=== PATIENT | male | born 1975 | race Caucasian/White ===

== ENCOUNTER 2016-08-21 16:18 | Emergency (ER) | payer SELFPAY ==
[~2016-08-21] VITALS: Ht 170.2 cm; Wt 114.5 kg
[2016-08-21 16:28] VITALS: Ht 170.2 cm; Wt 114.5 kg
[2016-08-21] MEDS ORDERED: ASPIRIN 81 MG CHEWABLE TABLET PO ONE (16:30)
[2016-08-21] MEDS ORDERED: NITROGLYCERIN 0.4 MG SUBLINGUAL TABLET SL PRN (16:30)
--- NOTE | 2016-08-21 16:41 | ERPDOC ---
Departure Disposition Decision Date: August 21, 2016 Disposition Decision Time: 20:21 (TORSTEN WEBER MD) Disposition: 01 DISCHARGED HOME, SELF-CARE Impression Impression (TIMO BETANCOURT DO) Impression: Primary Impression: Chest pain Chest pain type: unspecified Qualified Codes: R07.9 - Chest pain, unspecified Additional Impression: Reflux esophagitis Severity: Moderate (TORSTEN WEBER MD) Condition: Improved Seen By: Physician only (TORSTEN WEBER MD) Referrals: MINO HERNANDEZ APRN (Family) Patient Instructions: Chest Pain (ED) Problems/Meds/Labs Reviewed?: Yes Medications reviewed and manag: Yes (TORSTEN WEBER MD) Additional Instructions: Please call cardiology tomorrow. Dr. Kumar is communication engineer. His office number is [phone]. If you have any repeat chest pain tonight, return to the ED. Follow up care ordered?: Yes Mental Status: Alert, Oriented (TORSTEN WEBER MD) Scripts Ranitidine HCl (Ranitidine HCl) 150 Mg Tablet 150 MG PO BID for 30 Days, #60 TAB Take 1 tablet, by mouth, 2 times a day. Prov: TORSTEN WEBER MD 08/21/16 HPI - Chest Pain General Chief Complaint: Chest Pain Stated Complaint: CHEST PAIN, DIFF BREATHING Time Seen by Provider: 16:19 Source: patient (Patient presents to the ER with chest pain, which apparently began after a meal and 2 beers. Patient states he noticed the pain when he went to bed, pain is located in the Left Anterior Chest ), other (Patient denies chest pain on examination. Legal Intern used for translation) Exam Limitations: no limitations (TIMO BETANCOURT DO) Time Seen by Provider: 19:44 (TORSTEN WEBER MD) HPI - Chest Pain Occurred At: home Onset/Timing: Changing over time Duration: 1-3 hrs Pain/Severity Scale: Now & Worst: Unable to Rate Activities at Onset/Context: during/after eating Location: anterior L Quality: 'pain' Modifying Factors: IMPROVES WITH: rest Associated Symptoms: denies symptoms Chest Pain Radiation: no radiation Nitro Today/Relief: no nitro taken today Aspirin Treatment Today: 325 mg x 1, provided by ED Prior Chest Pain/Cardiac Jose Ramon: no prior chest pain, no prior cardiac workup Hx of Similar Symptoms: No (TIMO BETANCOURT DO) Allergies: Coded Allergies: No Known Allergies (Unverified , 08/21/16) Viagra/ED med in past 36 hrs: No (TIMO BETANCOURT DO) Past History Unable to Obtain PMH Due to: language barrier (TIMO BETANCOURT DO) Past Medical History Pt denies signifigant PMH Hx Echocardiogram: No (MARIA EUGENIA BETANCOURTIN DO) Surgical History Denies Surgeries (TIMO BETANCOURT DO) Family History Family History: Negative (TIMO BETANCOURT DO) Social History Smoking Status: Current some day smoker Does patient use chewing tobac: No Second Hand Exposure: No Substance Use Type: does not use Alcohol Intake: occasionally Last Drink: prior to arrival Housing: house Service: No Occupational Hazard: No Advance Directives: Yes Full Code (TIMO BETANCOURT DO) Record Review Pertinent history updated: Yes (TIMO BETANCOURT DO) Review of Systems Unable to Obtain ROS Due to: language barrier (TIMO BETANCOURT DO) Constitutional Constitutional: DENIES: chills, fever (MARIA EUGENIA BETANCOURTIN DO) Eyes Lids/Accessories: DENIES: erythema, swelling (MARIA EUGENIA BETANCOURTIN DO) ENMT Ears: DENIES: erythema, pain Balance: DENIES: ataxia, vertigo Sinuses: DENIES: congestion, rhinorrhea Mouth/Throat: DENIES: sore throat (SERAFINTIMO DO) Cardiovascular Cardiac: chest pain, DENIES: dyspnea on exertion, orthopnea Rhythm/Rate: DENIES: tachycardia (MARIA EUGENIA BETANCOURTIN DO) Pulmonary Respiratory: DENIES: cough, dyspnea, sputum (SERAFINTIMO DO) GI Upper Abdomen: DENIES: nausea, pain, vomiting Lower Abdomen: DENIES: constipation, diarrhea, pain (SERAFIN,TIMO DO) General: DENIES: dysuria (SERAFIN,TIMO DO) Musculoskeletal General: DENIES: cramps, pain, weakness (SERAFIN,TIMO DO) Integumentary Skin: DENIES: color change, itching, rash (SERAFIN,TIMO DO) Neurological General: DENIES: ataxia, change in strength, headache, numbness, poor coordination, seizures, syncope, vertigo, weakness (SERAFIN,TIMO DO) Psychiatric Psychiatric: DENIES: anxiety, depression, nervousness (MARIA EUGENIA BETANCOURTIN DO) Hematologic/Lymphatic Hematologic/Lymphatic: DENIES: anemia (MARIA EUGENIA BETANCOURTIN DO) Allergic/Immunological Allergic/Immunoligical: DENIES: sneezing (MARIA EUGENIA BETANCOURTIN DO) All other Systems All Other Systems: Reviewed and Negative (TIMO BETANCOURT DO) Physical Exam General General Nourishment: well nourished, well developed, appears stated age, adult General Body Habitus: well groomed (TIMO BETANCOURT DO) Vitals and Pain First Documented Vital Signs Date Time Temp Pulse Resp B/P Pulse Ox O2 Delivery O2 Flow Rate FiO2 08/21/16 16:19 98.2 112 16 124/62 94 Room Air (TORSTEN WEBER MD) Vitals and Pain Weight: Kilograms: 114.500 Height (feet): 5 Height (inches): 7.00 Triage Pain Scale: (TIMO BETANCOURT DO) RN VS reviewed by Provider: Yes (TIMO BETANCOURT DO) Eyes (brief) Eyes Brief: found: EOMI, PERRL (MARIA EUGENIA BETANCOURTIN DO) ENMT (brief) ENMT Brief: FOUND: TM clear, TM good light reflex, mucosa moist, NOT FOUND: pharnyx erythema (MARIA EUGENIA BETANCOURTIN DO) Neck (brief) Neck: FOUND: trachea midline, NOT FOUND: adenopathy, tenderness, tracheal deviation (SERAFINTIMO DO) Respiratory (brief) Respiratory: FOUND: clear all ryan, equal bilaterally (SERAFINTIMO DO) Cardiovascular (brief) Cardiac: FOUND: regular rate, regular rhythm (SERAFINTIMO DO) Abdomen (brief) Abdominal Brief: FOUND: bowel normo active x4, soft, tender, NOT FOUND: distended (SERAFIN,TIMO DO) Lymphatic (brief) Lymphatic Brief: NOT FOUND: adenopathy (SERAFIN,TIMO DO) Musculoskeletal (brief) Musculoskeletal Brief: NOT FOUND: spasm, tenderness (SERAFIN,TIMO DO) Integumentary (brief) Integumentary Brief: FOUND: pink, warm (SERAFIN,TIMO DO) Neurologic (brief) Neurological Brief: FOUND: CN w/o gross def to obs, gait w/o gross def to obs, motor-no gross deficits, sensory-no gross deficits, NOT FOUND: ataxia (TIMO BETANCOURT DO) Psychiatric (brief) Psychiatric Brief: FOUND: alert, attentive, normal affect, oriented (TIMO EBTANCOURT DO) Differential Diagnoses Considering: Acute OK, Anxiety/Panic, Angina, Biliary Colic, CHF, Costochondritis, Esophageal Spasm, GERD, Hypertensive Emergency, Pericarditis, Pleurisy, Pneumothorax, Pneumonia, PSVT, Pulmonary Edema, Pulmonary Embolus, Rib Fracture, Muscle Spasm, Trigger Points (TIMO BETANCOURT DO) Progress Results/Orders Orders Procedure Category Date Status Time Cbc W/Auto LAB 08/21/16 Complete Diff-Reflex Manual 16:19 Bmp - Basic Metabolic LAB 08/21/16 Complete Panel 16:19 Probnp LAB 08/21/16 Complete 16:19 Troponin I W LAB 08/21/16 Complete Hemolysis Index 16:19 INR LAB 08/21/16 Complete 16:19 EKG EKG 08/21/16 Taken 16:19 Chest 1 View RAD 08/21/16 Taken 16:19 Iv Lock (Ed Only) EDM 08/21/16 Transmitted 16:19 Aspirin (Asa) PHA 08/21/16 Complete 16:30 Nitroglycerin PHA 08/21/16 In Process (Nitrostat) 16:30 D-Dimer LAB 08/21/16 Complete Ethanol LAB 08/21/16 Complete Metoprolol (Lopressor) PHA 08/21/16 Complete 16:45 Normal Saline PHA 08/21/16 Complete (Norm... W/Multi-Vit 17:45 Troponin I W LAB 08/21/16 Complete Hemolysis Index 19:30 EKG EKG 08/21/16 Taken 19:30 (TORSTEN WEBER MD) Lab Results Laboratory Tests Test 08/21/16 00:00 08/21/16 16:38 08/21/16 17:20 08/21/16 19:18 D-Dimer < 100NG/ML White Blood Count 9.5T/MM3 Red Blood Count 5.03M/MM3 Hemoglobin 16.0GM/DL Hematocrit 45.5% Mean Corpuscular Volume 90.5UM3 Mean Corpuscular Hemoglobin 31.8UUG Mean Corpuscular Hemoglobin Concent 35.2GM/DL RDW Standard Deviation 41.3FL Platelet Count 236T/MM3 Mean Platelet Volume 10.7UM3 Immature Granulocyte % (Auto) 0.2% Neutrophils (%) (Auto) 53.0% Lymphocytes (%) (Auto) 39.3% Monocytes (%) (Auto) 6.3% Eosinophils (%) (Auto) 0.7% Basophils (%) (Auto) 0.5% Absolute Immature Granulocyte (auto 0.02T/MM3 Absolute Neutrophils (auto) 5.0T/MM3 Absolute Lymphocytes (auto) 3.7T/MM3 Absolute Monocytes (auto) 0.6T/MM3 Absolute Eosinophils (auto) 0.1T/MM3 Absolute Basophils (auto) 0.1T/MM3 Turbidity < 20 Sodium Level 149MEQ/L Potassium Level 3.9MEQ/L Chloride Level 111MEQ/L Carbon Dioxide Level 20MEQ/L Anion Gap 18MEQ/L Blood Urea Nitrogen 12.0MG/DL Creatinine 1.0MG/DL Glomerular Filtration Rate Calc 84 BUN/Creatinine Ratio 12RATIO Glucose Level 124MG/DL Calculated Osmolality 287MOSM/KG Calcium Level 8.5MG/DL Icterus Index < 2 Troponin I < 0.012ng/ml < 0.012ng/ml KF-Pme-U-Type Natriuretic Peptide 34PG/ML Chemistry Specimen Hemolysis 41 52 Alcohol, Quantitative 247MG/DL Prothromb Time International Ratio 1.00 (TORSTEN WEBER MD) Medications Current ED Medications Aspirin (ASA) 324 mg O ONCE PO Last administered on 08/21/16 16:41; Start 08/21 at 16:30; Stop 08/21/16 at 16:31; Status DC Nitroglycerin (Nitrostat) 0.4 mg Q5MIN PRN SL CHEST PAIN; Start 08/21/16 at 16: 30 Metoprolol Tartrate 5 mg 5 mg O ONCE IV Last administered on 08/21/16 16:48; Start 08/21/16 at 16:45; Stop 08/21/16 at 16:46; Status DC Multivitamins/ Minerals/Thiamine HCl/Folic Acid/ Sodium Chloride (M.v.i. Adult/ Vit. B1/Folate/ Normal Saline IV) 1,011.2 ml @ 500 mls/ hr Q2H2M ONCE IV Last administered on 08/21/16 18:07; Start 08/21/16 at 17:45; Stop 5/9/17 at 19:46; Status DC (TORSTEN WEBER MD) Progress Progress Patient remains asymptomatic, wanting to go home Patient will wait for repeat cardiac enzymes 17:59 Patient remains asymptomatic, but is concerned about going home, would like to be admitted (TIMO BETANCOURT DO) Progress Repeat troponin came back negative. Patient's chest pain is resolved, he would like to go home. We discussed options of treatment and he agreed to follow up with cardiology. We'll take him off work the next 2 days, he will call cardiology tomorrow. He will return immediately if symptoms recur. He did have a headache from the nitroglycerin glycerin and was given 1 Percocet 5 mg tablet. (TORSTEN WEBER MD) EKG EKG : Rate: >100 Rhythm: sinus [place]: left QRS: RBBB Intervals: normal ST/T: normal Interpreted by: signing physician (TIMO BETANCOURT DO) EKG ScImage/Picomm EKG interpreted in ScImage/Pic: No (TIMO BETANCOURT DO) Consult/PCP Consult/PCP : Physician Contacted: Dr. He Time Called: 17:55 Time of first response: 18:07 Type of discussion: Phone Consult/PCP Discussion Details Discussed patient examination, labs, EKG, ETOH level, and Patient's concern about going home Comments Repeat CE and EKG at 3 hours, Call if changes (TIMO BETANCOURT DO) Xray Xray : Reason for Exam: Chest Pain Xray: CXR Portable Interpretation: Normal, Interpreted by Me (TIMO BETANCOURT DO) TIMO BETANCOURT DO August 21, 2016 16:41 TORSTEN WEBER MD August 21, 2016 20:24
[2016-08-21] MEDS ORDERED: METOPROLOL 5mg/5ml INJECTION IV ONE (16:45)
[2016-08-21 16:48] LABS: BASOPHILS # (AUTO) 0.1 T/MM3 (0-0.2); BASOPHILS % (AUTO) 0.5 % (0-2); EOSINOPHILS # (AUTO) 0.1 T/MM3 (0-0.5); EOSINOPHILS % (AUTO) 0.7 % (0-4); HCT - HEMATOCRIT 45.5 % (41-53); IMMATURE GRANULOCYTE # (AUTO) 0.02 T/MM3 (0.00-0.03); IMMATURE GRANULOCYTE % (AUTO) 0.2 % (0.0-0.5); LYMPHOCYTES # (AUTO) 3.7 T/MM3 (1-4.8); LYMPHOCYTES % (AUTO) 39.3 % (23-45); MEAN CORPUSCULAR HGB 31.8 UUG (26-34); MEAN CORPUSCULAR HGB CONC(MCHC 35.2 GM/DL (31-37); MEAN CORPUSCULAR VOLUME 90.5 UM3 (80-100); MEAN PLATELET VOLUME 10.7 UM3 (9.4-12.4); MONOCYTES # (AUTO) 0.6 T/MM3 (0-0.8); MONOCYTES % (AUTO) 6.3 % (0-9.0); RED BLOOD COUNT 5.03 M/MM3 (4.50-5.90); WBC - WHITE BLOOD COUNT 9.5 T/MM3 (4.5-11.0)
--- NOTE | 2016-08-21 16:55 | NUR ---
HOOP ROLLS OPERATOR HAS BEEN HELPING ASSESS PT. AT PRESENT PT IS NOT HAVING CP, SOA OR NAUSEA
[2016-08-21 17:14] LABS: ANION GAP 18 MEQ/L (5-15); BUN/CREATININE RATIO 12 RATIO (6-26); CALCIUM 8.5 MG/DL (8.4-10.2); CHLORIDE 111 MEQ/L (98-107); CO2 - CARBON DIOXIDE 20 MEQ/L (22-30); GLOMERULAR FILTRATION RATE 84; GLUCOSE 124 MG/DL (75-110); POTASSIUM 3.9 MEQ/L (3.6-5); SODIUM 149 MEQ/L (134-144)
[2016-08-21 17:24] LABS: PROTHROMBIN TIME 11.7 SEC (10.8-13.8)
[2016-08-21 17:26] LABS: PROBNP 34 PG/ML (0-175)
--- NOTE | 2016-08-21 17:40 | NUR ---
DR BETANCOURT IN TO SEE PT. CLINICAL PRACTITIONER PER ROSENDO USED TO ASSESS PT & SHARE CARE PLAN WITH HIM
[2016-08-21] MEDS ORDERED: MULTI-VIT INF, ADULT 10 ML, THIAMINE 100 MG, FOLIC ACID 1 MG in NORMAL SALINE 1,000 ML IV ONE ×4 (17:45)
--- NOTE | 2016-08-21 18:15 | NUR ---
REPORT TO FACUNDO DYER
--- NOTE | 2016-08-21 18:20 | NUR ---
DR DR BETANCOURT IN ROOM USING INTERPRETOR TO TALK WITH PT EXPLAINED TO PT WE WILL REPEAT EKG AND LAB AT 1930
--- NOTE | 2016-08-21 19:18 | NUR ---
LAB LAB AT [facility] FOR REPEAT TROPONIN
--- NOTE | 2016-08-21 19:45 | NUR ---
EKG REPEAT EKG DONE PT CONTINUES TO HAVE NO CHEST PAIN, SOA OR OTHER C/O
--- NOTE | 2016-08-21 20:04 | NUR ---
DR TIA WEBER IN ROOM WITH INTERPRETOR TO TALK WITH PT
--- NOTE | 2016-08-21 20:10 | NUR ---
IV BANANA BAG INFUSED IV SITE WITHOUT REDNESS OR SWELLING
--- NOTE | 2016-08-21 20:19 | NUR ---
IVL IVL DC'D WITH CATH INTACT DRSG APPLIED TO IV SITE
[2016-08-21] MEDS ORDERED: RANI150T7 PO (20:25)
[2016-08-21] MEDS ORDERED: OXYCODONE/APAP 5mg/325mg TABLET PO ONE (20:30)
--- NOTE | 2016-08-21 20:44 | NUR ---
INSTRUCTIONS DISMISSAL INSTRUCTIONS GIVEN TO PT VERBALIZED UNDERSTANDING OF ALL
--- NOTE | 2016-08-21 20:45 | NUR ---
NOTE WORK NOTE PROVIDED FOR PT
[2016-08-21 20:46] VITALS: BP 117/63; PULSE 90; RESP 18; TEMP 99.1; O2SAT 96
--- NOTE | 2016-08-21 20:46 | NUR ---
DISMISS PT DISMISSED AMBULATORY WITH FRIEND
--- NOTE | 2016-08-22 08:31 | DI ---
INDICATION: ITS.REASON: chest pain PROCEDURE: CHEST AP portable upright Encounter: Initial COMPARISON: 02/16/2015 FINDINGS: The lungs show low volume but are clear without evidence of focal abnormal airspace opacity. There is no pleural effusion or pneumothorax. The heart is now mildly enlarged but accentuated by the poor inspiratory effort. The mediastinal contours and pulmonary vascularity are within normal limits. There is no significant skeletal abnormality. IMPRESSION: 1. Low lung volume with poor inspiratory effort. 2. Developing overlying cardiomegaly but no overt congestive change. .
== END 2016-08-21 20:46 | disposition home or self-care (01) ==
LOC: ED 16:18
DX: R07.89 Other chest pain (principal); K21.0 Gastro-esophageal reflux disease with esophagitis
CPT/HCPCS: 36415; 36416; 80048; 80307; 83880; 84484; 85025; 85379; 85610; 93005